=== PATIENT | female | born 1955 | race Caucasian/White ===

== ENCOUNTER 2023-05-06 12:29 | Inpatient (IN) | payer OTHER, SELFPAY ==
[2023-05-06] MEDS ORDERED: Acetaminophen 500 MG TAB ONE (13:28)
[2023-05-06 13:48] LABS: #Basophils 0.1 thou/uL (0.0-0.2); #Monocytes 1.5 thou/uL (0.11-0.59); #Neutrophils 6.1 thou/uL (1.40-6.50); %Basophils 0.7 % (0.0-1.0); %Lymphocytes 13.4 % (21.0-51.0); %Monocytes 17.1 % (0.0-10.0); %Neutrophils 68.2 % (42.0-75.0); Hematocrit 42.5 % (36.0-47.0); Hemoglobin 14.6 g/dL (12.0-16.0); Mean Corpuscular HGB CONC 34.4 g/dL (32.0-36.0); Mean Corpuscular Hemoglobin 32.2 pg (27.0-31.0); Mean Corpuscular Volume 93.8 fl (78.0-98.0); Mean Platelet Volume 10.2 fL (7.4-10.4); Platelet Count 261 10x3/uL (130-400); RBC Distribution Width 13.6 % (11.5-14.5); Red Blood Cell (RBC) Count 4.53 mill/uL (4.20-5.40)
[2023-05-06 14:01] LABS: ALT (SGPT) 76 U/L (8-55); AST (SGOT) 68 U/L (5-34); Albumin 4.5 g/dL (3.4-4.8); Alkaline Phosphatase 73 U/L (40-110); Anion Gap 14 mmol/L (10-20); BUN (Urea Nitrogen) 9 mg/dL (9.8-20.1); Bilirubin, Total 0.7 mg/dL (0.2-1.2); Calc. Creatinine Clearance 0 mL/min (70-130); Calcium 9.9 mg/dL (7.8-10.44); Carbon Dioxide 27 mmol/L (23-31); Chloride 96 mmol/L (98-107); Estimated GFR 82; Globulin 3.1 g/dL (2.4-3.5); Glucose 124 mg/dL (80-115); Potassium 3.8 mmol/L (3.5-5.1); Protein, Total 7.6 g/dL (5.8-8.1); Sodium 133 mmol/L (136-145)
[2023-05-06 14:03] LABS: Troponin I Less than 0.010 ng/mL (< 0.028)
[2023-05-06] MEDS ORDERED: fentaNYL 50 mcg/mL 1 mL Vial ONE (14:03)
[2023-05-06] MEDS ORDERED: Ipratropium/Albuterol 3 ML NEB NEB PRN (14:52)
[2023-05-06] MEDS ORDERED: hydrALAZINE 20 MG/ML VIAL SLOW IVP PRN (14:52)
[2023-05-06] MEDS ORDERED: TETANUS, DIPHTHERIA TOX,ADULT (TDVAX) 0.5 ML VIAL IM ONE (14:52)
[2023-05-06] MEDS ORDERED: Promethazine HCl 25 MG/ML VIAL IM PRN (14:52)
[2023-05-06] MEDS ORDERED: Prochlorperazine Edisylate 10 MG in Sodium Chloride 0.9% 50 ML IVPB PRN (15:52)
[2023-05-06] MEDS ORDERED: diphenhydrAMINE 25 MG CAP PO PRN (16:15)
[2023-05-06] MEDS ORDERED: diphenhydrAMINE 50 MG/ML VIAL IM/IV PRN (16:15)
[2023-05-06 17:39] VITALS: BMI 32.5
[2023-05-06] MEDS: Morphine 2 MG/ML VIAL SLOW IVP PRN ×3 (18:08→23:07)
[2023-05-06] MEDS: Sodium Chloride 0.9% 1,000 ML IV SCH (18:09)
[2023-05-06] MEDS: Acetaminophen 325 MG TAB PO SCH ×2 (18:09→21:24)
[2023-05-06] MEDS: Famotidine 20 MG TAB PO SCH (20:15)
[2023-05-06] MEDS: traMADol HCl 50 MG TAB PO PRN (21:25)
[2023-05-07] MEDS: Morphine 2 MG/ML VIAL SLOW IVP PRN ×3 (02:33→06:45)
[2023-05-07] MEDS: traMADol HCl 50 MG TAB PO PRN (03:52)
[2023-05-07] MEDS: Acetaminophen 325 MG TAB PO SCH ×4 (03:52→21:16)
[2023-05-07] MEDS: Sodium Chloride 0.9% 1,000 ML IV SCH ×3 (03:53→22:00)
[2023-05-07 06:18] LABS: #Monocytes 1.3 thou/uL (0.11-0.59); #Neutrophils 6.4 thou/uL (1.40-6.50); %Basophils 0.4 % (0.0-1.0); %Monocytes 14.2 % (0.0-10.0); %Neutrophils 69.1 % (42.0-75.0); Hematocrit 38.7 % (36.0-47.0); Hemoglobin 13.6 g/dL (12.0-16.0); Mean Corpuscular HGB CONC 35.1 g/dL (32.0-36.0); Mean Corpuscular Hemoglobin 32.2 pg (27.0-31.0); Mean Corpuscular Volume 91.5 fl (78.0-98.0); Mean Platelet Volume 10.3 fL (7.4-10.4); Platelet Count 206 10x3/uL (130-400); RBC Distribution Width 13.3 % (11.5-14.5); Red Blood Cell (RBC) Count 4.23 mill/uL (4.20-5.40); White Blood Cell (WBC) Count 9.2 10x3/uL (4.8-10.8)
[2023-05-07 06:41] LABS: Anion Gap 14 mmol/L (10-20); BUN (Urea Nitrogen) 6 mg/dL (9.8-20.1); Calc. Creatinine Clearance 96 mL/min (70-130); Calcium 8.5 mg/dL (7.8-10.44); Carbon Dioxide 23 mmol/L (23-31); Chloride 95 mmol/L (98-107); Estimated GFR 93; Glucose 131 mg/dL (80-115); Sodium 128 mmol/L (136-145)
[2023-05-07] MEDS ORDERED: Electrolyte Replacement Protocol 1 EACH FS SCH (07:36)
[2023-05-07] MEDS ORDERED: CEFAZOLIN 2 GM in Sodium Chloride 0.9% 100 ML IVPB SCH (08:00)
[2023-05-07] MEDS ORDERED: HYDROcodone/Acetaminophen 5/325 mg Tablet PO SCH (09:00)
[2023-05-07] MEDS ORDERED: Non-Formulary Item 1 EACH (Olmesartan Medoxomil [Olmesartan Medoxomil] 20 MG Tablet) PO SCH (09:00)
[2023-05-07] MEDS: HYDROcodone/Acetaminophen 5/325 mg Tablet PO PRN ×2 (09:13→21:23)
[2023-05-07] MEDS: Losartan 25 MG TAB PO SCH (09:17)
[2023-05-07] MEDS: Levothyroxine Sodium 50 MCG TAB PO SCH (09:17)
[2023-05-07] MEDS: Famotidine 20 MG TAB PO SCH ×2 (09:17→21:15)
[2023-05-07 10:16] LABS: Bilirubin Negative (Negative); Blood, Urine Negative (Negative); Clarity Clear (Clear); Glucose, Urine (Dipstick) 30 mg/dL (Negative); Ketone, Urine 40 mg/dL (Negative); Leukocyte Negative Leu/uL (Negative); Nitrite Negative (Negative); Protein, Urine (Dipstick) 20 mg/dL (Neg-Trace); RBC/HPF 0-3 HPF (0-3); Specific Gravity, Urine 1.027 (1.002-1.036); Urobilinogen 3 mg/dL (Less than 2); WBC/HPF 0-3 HPF (0-3); pH, Urine 6.5 (5.0-9.0)
[2023-05-07 10:17] LABS: Bacteria/HPF Rare-Few HPF (None Seen)
[2023-05-07] MEDS: Ondansetron ODT 4 MG TAB PO PRN (10:59)
[2023-05-07] MEDS ORDERED: PROPOFOL 20 ML ONE (13:27)
[2023-05-07] MEDS ORDERED: Lidocaine 1% PF 5 ML VIAL ONE ×2 (13:27→14:29)
[2023-05-07] MEDS ORDERED: fentaNYL 50 mcg/mL 1 mL Vial ONE (13:50)
[2023-05-07] MEDS ORDERED: Lidocaine 1% (PF) 30 ML VIAL ONE (14:04)
[2023-05-07] MEDS ORDERED: EPINEPHrine 1 MG/ML VIAL ONE (14:04)
[2023-05-07] MEDS ORDERED: Sodium Chloride 0.9% 100 ML ONE (14:12)
[2023-05-07] MEDS ORDERED: CEFAZOLIN 2 GM VIAL ONE (14:12)
[2023-05-07] MEDS ORDERED: Rocuronium Bromide 10 MG/ML (10ML VIAL) ONE ×2 (14:19→14:29)
[2023-05-07] MEDS ORDERED: fentaNYL PF 100 MCG/2 ML SYRINGE ONE ×2 (14:21→16:21)
[2023-05-07] MEDS ORDERED: Ropivacaine 0.5% HCl/PF (150 MG/30 ML VIAL) ONE ×2 (14:29→15:20)
[2023-05-07] MEDS ORDERED: Ondansetron PF 4 MG/2 ML Vial ONE ×2 (14:29→14:51)
[2023-05-07] MEDS ORDERED: PROPOFOL 200 MG/20 ML VIAL ONE (14:29)
[2023-05-07] MEDS ORDERED: Dexamethasone 20 MG/5 ML VIAL ONE ×2 (14:29→14:51)
[2023-05-07] MEDS ORDERED: PHENYLEPHRINE-NS 100 MCG/ML 10 ML SYRINGE ONE (14:29)
[2023-05-07] MEDS ORDERED: SUGAMMADEX SODIUM 200 MG/2 ML VIAL ONE (15:41)
[2023-05-07] MEDS: CEFAZOLIN 2 GM in Sodium Chloride 0.9% 100 ML IVPB SCH (21:17)
[2023-05-08] MEDS: Acetaminophen 325 MG TAB PO SCH ×4 (05:46→21:47)
[2023-05-08] MEDS: CEFAZOLIN 2 GM in Sodium Chloride 0.9% 100 ML IVPB SCH (05:48)
[2023-05-08 06:10] LABS: #Monocytes 1.5 thou/uL (0.11-0.59); %Basophils 0.2 % (0.0-1.0); %Lymphocytes 12.3 % (21.0-51.0); %Monocytes 13.9 % (0.0-10.0); %Neutrophils 73.1 % (42.0-75.0); Hematocrit 37.7 % (36.0-47.0); Hemoglobin 12.8 g/dL (12.0-16.0); Mean Corpuscular Hemoglobin 32.3 pg (27.0-31.0); Mean Platelet Volume 10.4 fL (7.4-10.4); Platelet Count 202 10x3/uL (130-400); RBC Distribution Width 13.5 % (11.5-14.5); Red Blood Cell (RBC) Count 3.96 mill/uL (4.20-5.40)
[2023-05-08 06:17] LABS: Mean Corpuscular Volume 95.2 fl (78.0-98.0)
[2023-05-08 06:30] LABS: Anion Gap 11 mmol/L (10-20); BUN (Urea Nitrogen) 7 mg/dL (9.8-20.1); Calc. Creatinine Clearance 101 mL/min (70-130); Calcium 8.4 mg/dL (7.8-10.44); Carbon Dioxide 27 mmol/L (23-31); Chloride 100 mmol/L (98-107); Estimated GFR 95; Glucose 128 mg/dL (80-115); Potassium 4.1 mmol/L (3.5-5.1); Sodium 134 mmol/L (136-145)
[2023-05-08] MEDS: Losartan 25 MG TAB PO SCH (08:43)
[2023-05-08] MEDS: Levothyroxine Sodium 50 MCG TAB PO SCH (08:43)
[2023-05-08] MEDS: Famotidine 20 MG TAB PO SCH ×2 (08:43→19:50)
[2023-05-08] MEDS: Polyethylene Glycol 3350 17 GM Packet PO SCH (11:00)
[2023-05-08] MEDS: Sodium Chloride 0.9% 1,000 ML IV SCH (11:40)
[2023-05-08] MEDS: HYDROcodone/Acetaminophen 5/325 mg Tablet PO PRN ×2 (11:43→19:51)
[2023-05-09] MEDS: Sodium Chloride 0.9% 1,000 ML IV SCH ×2 (01:15→05:22)
[2023-05-09] MEDS: HYDROcodone/Acetaminophen 5/325 mg Tablet PO PRN ×2 (01:16→20:08)
[2023-05-09] MEDS: Acetaminophen 325 MG TAB PO SCH ×5 (03:56→21:49)
[2023-05-09 05:13] LABS: #Monocytes 1.4 thou/uL (0.11-0.59); #Neutrophils 5.6 thou/uL (1.40-6.50); %Basophils 0.3 % (0.0-1.0); %Eosinophils 0.1 % (0.0-10.0); %Lymphocytes 22.5 % (21.0-51.0); %Monocytes 15.5 % (0.0-10.0); %Neutrophils 61.3 % (42.0-75.0); Hematocrit 34.1 % (36.0-47.0); Hemoglobin 11.5 g/dL (12.0-16.0); Mean Corpuscular HGB CONC 33.7 g/dL (32.0-36.0); Platelet Count 191 10x3/uL (130-400); RBC Distribution Width 13.8 % (11.5-14.5); Red Blood Cell (RBC) Count 3.59 mill/uL (4.20-5.40); White Blood Cell (WBC) Count 9.2 10x3/uL (4.8-10.8)
[2023-05-09] MEDS ORDERED: FLU VACC QS2023(65UP)/MF59C/PF 60 MCG/0.5 ML SYRINGE IM ONE (09:00)
[2023-05-09] MEDS: Losartan 25 MG TAB PO SCH (09:03)
[2023-05-09] MEDS: Levothyroxine Sodium 50 MCG TAB PO SCH (09:03)
[2023-05-09] MEDS: Famotidine 20 MG TAB PO SCH ×2 (09:03→20:07)
[2023-05-09] MEDS: Polyethylene Glycol 3350 17 GM Packet PO SCH (09:06)
[2023-05-09] MEDS: Docusate 100 MG CAP PO SCH (20:07)
[2023-05-09] MEDS ORDERED: Docusate Sodium 10 MG/1 ML Oral Suspension PO SCH (21:00)
[2023-05-10] MEDS: Acetaminophen 325 MG TAB PO SCH ×4 (05:03→23:38)
[2023-05-10] MEDS: Levothyroxine Sodium 50 MCG TAB PO SCH (08:41)
[2023-05-10] MEDS: Losartan 25 MG TAB PO SCH (08:41)
[2023-05-10] MEDS: Famotidine 20 MG TAB PO SCH ×2 (08:41→20:43)
[2023-05-10] MEDS: Docusate 100 MG CAP PO SCH ×2 (08:42→20:43)
[2023-05-10] MEDS: HYDROcodone/Acetaminophen 5/325 mg Tablet PO PRN ×2 (08:42→20:43)
[2023-05-10] MEDS: Ondansetron ODT 4 MG TAB PO PRN (08:42)
[2023-05-10] MEDS: Polyethylene Glycol 3350 17 GM Packet PO SCH (10:10)
[2023-05-10] MEDS: Senokot 8.6 MG TAB PO SCH (10:10)
[2023-05-10] MEDS: Atorvastatin Calcium 10 MG TAB PO SCH (20:43)
[2023-05-11] MEDS: Acetaminophen 325 MG TAB PO SCH ×4 (04:11→22:12)
[2023-05-11] MEDS ORDERED: Milk Of Magnesia 30 ML UDCUP PO SCH (09:00)
[2023-05-11] MEDS: Aspirin 81 mg Enteric Coated Tablet PO SCH (09:36)
[2023-05-11] MEDS: Famotidine 20 MG TAB PO SCH ×2 (09:36→19:54)
[2023-05-11] MEDS: Levothyroxine Sodium 50 MCG TAB PO SCH (09:36)
[2023-05-11] MEDS: Losartan 25 MG TAB PO SCH (09:36)
[2023-05-11] MEDS: Senokot 8.6 MG TAB PO SCH (09:37)
[2023-05-11] MEDS: Docusate 100 MG CAP PO SCH ×2 (09:37→19:54)
[2023-05-11] MEDS: HYDROcodone/Acetaminophen 5/325 mg Tablet PO PRN ×2 (09:37→16:44)
[2023-05-11] MEDS: Polyethylene Glycol 3350 17 GM Packet PO SCH ×2 (09:38→09:43)
[2023-05-11] MEDS ORDERED: Electrolyte Replacement Protocol FS PRN (13:00)
[2023-05-11] MEDS: Ipratropium/Albuterol 3 ML NEB NEB SCH ×2 (13:53→19:29)
[2023-05-11] MEDS: Atorvastatin Calcium 10 MG TAB PO SCH (19:54)
[2023-05-12] MEDS: Acetaminophen 325 MG TAB PO SCH ×4 (04:00→22:05)
[2023-05-12 06:56] LABS: Anion Gap 13 mmol/L (10-20); BUN (Urea Nitrogen) 10 mg/dL (9.8-20.1); Calc. Creatinine Clearance 98 mL/min (70-130); Calcium 9.3 mg/dL (7.8-10.44); Carbon Dioxide 27 mmol/L (23-31); Chloride 97 mmol/L (98-107); Estimated GFR 95; Glucose 122 mg/dL (80-115); Magnesium 2.2 mg/dL (1.6-2.6); Phosphorus 3.7 mg/dL (2.3-4.7); Potassium 4.4 mmol/L (3.5-5.1); Sodium 133 mmol/L (136-145)
[2023-05-12] MEDS: Ipratropium/Albuterol 3 ML NEB NEB SCH ×3 (07:46→18:47)
[2023-05-12] MEDS: HYDROcodone/Acetaminophen 5/325 mg Tablet PO PRN ×2 (08:26→22:05)
[2023-05-12] MEDS: Docusate 100 MG CAP PO SCH ×2 (08:27→20:16)
[2023-05-12] MEDS: Senokot 8.6 MG TAB PO SCH (08:27)
[2023-05-12] MEDS: Aspirin 81 mg Enteric Coated Tablet PO SCH (08:27)
[2023-05-12] MEDS: Losartan 25 MG TAB PO SCH (08:27)
[2023-05-12] MEDS: Levothyroxine Sodium 50 MCG TAB PO SCH (08:28)
[2023-05-12] MEDS: Famotidine 20 MG TAB PO SCH ×2 (08:28→20:16)
[2023-05-12] MEDS: Polyethylene Glycol 3350 17 GM Packet PO SCH (08:28)
[2023-05-12] MEDS: Atorvastatin Calcium 10 MG TAB PO SCH (20:16)
[2023-05-13] MEDS: Acetaminophen 325 MG TAB PO SCH ×2 (05:03→09:56)
[2023-05-13] MEDS: Ipratropium/Albuterol 3 ML NEB NEB SCH (06:40)
[2023-05-13] MEDS: Famotidine 20 MG TAB PO SCH (09:55)
[2023-05-13] MEDS: Senokot 8.6 MG TAB PO SCH (09:55)
[2023-05-13] MEDS: Docusate 100 MG CAP PO SCH (09:56)
[2023-05-13] MEDS: Levothyroxine Sodium 50 MCG TAB PO SCH (09:56)
[2023-05-13] MEDS: Polyethylene Glycol 3350 17 GM Packet PO SCH (09:57)
[2023-05-13] MEDS: Aspirin 81 mg Enteric Coated Tablet PO SCH (09:57)
[2023-05-13] MEDS: Losartan 25 MG TAB PO SCH (09:57)
[2023-05-13 12:23] VITALS: BP 152/91; TEMP 98.1
== END 2023-05-13 12:45 | disposition home or self-care (01) | DRG 494 ==
LOC: ERS 12:29 → SJJU 14:58
PROVIDERS: ADMIT Specialist; ATTEND Specialist
PROC: 0QSH04Z Reposition Left Tibia with Internal Fixation Device, Open Approach (ICD-10-PCS; principal; 2023-05-07)
DX: S82.142A Displaced bicondylar fracture of left tibia, initial encounter for closed fracture (principal); J44.9 Chronic obstructive pulmonary disease, unspecified; E78.00 Pure hypercholesterolemia, unspecified; E66.9 Obesity, unspecified; E03.9 Hypothyroidism, unspecified; I10 Essential (primary) hypertension; F17.210 Nicotine dependence, cigarettes, uncomplicated; W19.XXXA Unspecified fall, initial encounter; Y92.008 Other place in unspecified non-institutional (private) residence as the place of occurrence of the external cause; Z68.32 Body mass index [BMI] 32.0-32.9, adult; Z90.710 Acquired absence of both cervix and uterus
CPT/HCPCS: 36415; 80048; 80053; 81001; 83735; 83880; 84100; 84484; 85025; 90714; 93005; 94640; 96374; C1713; J0171; J0360; J1100; J1650; J2001; J2272; J2405; J2704; J2795; J3010; J3490; J7050; J7620; Q0162